=== PATIENT | female | born 1970 | race Hispanic/Latino ===

== ENCOUNTER 2017-06-18 19:43 | Emergency (ER) | payer SELFPAY ==
[~2017-06-18] VITALS: Ht 165.1 cm; Wt 65.8 kg
[2017-06-18] MEDS ORDERED: DIPHENHYDRAMINE HCL 25 MG CAP PO ONE (20:00)
[2017-06-18] MEDS ORDERED: DEXAMETHASONE SOD PHOS 10 MG/1 ML VIAL INJ ONE (20:00)
[2017-06-18] MEDS ORDERED: FAMOTIDINE 20 MG TAB PO ONE (20:00)
== END 2017-06-18 21:30 | disposition home or self-care (01) ==
LOC: ER 19:43
DX: R21 Rash and other nonspecific skin eruption (principal); T37.0X4A Poisoning by sulfonamides, undetermined, initial encounter
CPT/HCPCS: 99283; J1100